=== PATIENT | female | born 1940 | race Caucasian/White ===

== ENCOUNTER 2017-04-27 07:35 | Inpatient (IN) | payer MEDICARE, MEDICAID ==
[2017-04-21 11:17] LABS: BASOPHILS % (AUTO) 0.2 % (0-1); EOSINOPHILS # (AUTO) 0.1 X10'3 (0-0.9); EOSINOPHILS % (AUTO) 1.7 % (0-6); LYMPHOCYTES # (AUTO) 1.4 X10'3 (1.1-4.8); LYMPHOCYTES % (AUTO) 29.1 % (21-51); MEAN CORPUSCULAR HEMOGLOBIN 33.9 PG (27.0-31.0); MEAN CORPUSCULAR HGB CONC 33.7 % (33.0-36.5); MEAN CORPUSCULAR VOLUME 100.7 FL (78-98); MEAN PLATELET VOLUME 6.3 FL (7.4-10.4); MONOCYTES # (AUTO) 0.5 X10'3 (0-0.9); MONOCYTES % (AUTO) 9.7 % (2-12); NEUTROPHILS # (AUTO) 2.8 X10'3 (1.8-7.7); NEUTROPHILS % (AUTO) 59.3 % (42-75); PRE OP HEMATOCRIT 37.3 % (35.0-45.0); PRE OP HEMOGLOBIN 12.6 g/dL (12.0-16.0); PRE OP PLATELET COUNT 272 X10'3 (140-440); RED BLOOD COUNT 3.71 X10'6 (4.20-5.60)
[2017-04-21 11:18] LABS: CLARITY,URINE CLEAR (Clear); COLOR,URINE YELLOW (Yellow); GLUCOSE, URINE NEGATIVE (Neg); KETONES,URINE NEGATIVE (Neg); LEUKOCYTE ESTERASE ,URINE NEGATIVE (Neg); NITRITES, URINE NEGATIVE (Neg); OCCULT BLOOD,URINE NEGATIVE (Neg); PH,URINE 6.5 (4.8-8.0); PROTEIN,URINE NEGATIVE (Neg); UROBILINOGEN,URINE 0.2 E.U/dL (0.2-1.0)
[2017-04-21 11:22] LABS: UA COLLECTION TYPE CLN CATCH MIDSTREAM
[2017-04-21 11:27] LABS: PRE OP INR 0.9 INR; PRE OP PROTIME 9.7 SECONDS (9.0-12.0)
[2017-04-21 11:32] LABS: ALBUMIN 3.6 G/DL (3.4-5.0); ALKALINE PHOSPHATASE 79 IU/L (46-116); BLOOD UREA NITROGEN 11 MG/DL (7-18); BUN/CREATININE RATIO 14.3 (6.6-38.0); CALCIUM 8.4 MG/DL (8.5-10.1); CHLORIDE 104 MMOL/L (99-107); CREATININE 0.77 MG/DL (0.40-0.90); PRE OP ALT 19 U/L (30-65); PRE OP ANION GAP 7 (8-16); PRE OP AST 15 U/L (10-37); PRE OP BILIRUB, TOTAL 0.2 MG/DL (0.0-1.0); PRE OP GLUCOSE 88 MG/DL (70-104); PRE OP POTASSIUM 4.3 MMOL/L (3.4-5.1); PRE OP SODIUM 138 MMOL/L (135-145); TOTAL PROTEIN 7.2 G/DL (6.4-8.2); eGFR 73 ML/MIN
[2017-04-27] VITALS (19 sets, daily range): BP systolic 99–138; BP diastolic 47–82
[~2017-04-27] VITALS: Ht 170.2 cm; Wt 60.0 kg
[~2017-04-27 07:35] MED LIST: ENZY1CAP5 PO; HORMONE CREAM TOP; IBUP-1984 PO; LEVO25TA7 PO; MAGN400O6 PO; MESSAGE TO NURSING IV ONE; VANCOMYCIN INJ 1000 MG in NORMAL SALINE 250ml IV.SOLN IV ONE; [UNRECOGNIZED DRUG - OTHER] PO; [UNRECOGNIZED DRUG - OTHER] PO; [UNRECOGNIZED DRUG - OTHER] PO; acetaminophen 325mg tablet PO ONE; celeCOXIB 100mg capsule PO ONE; famotidine 20mg tablet PO ONE; gabapentin 300mg capsule PO ONE; metoclopramide 5 mg/ml inj IV ONE; oxyCODONE SR 10mg (sust. release) tab PO ONE; ringers solution, lacted 1,000 ML IV SCH; tranexamic acid inj. 1,000 MG in normal saline 100ml IV soln 90 ML IV ONE
[2017-04-27] MEDS ORDERED: ondansetron/PF 4mg/2ml inj IV PRN ×3 (09:25→10:20)
[2017-04-27] MEDS ORDERED: diphenhydrAMINE 25mg capsule PO PRN ×2 (09:25)
[2017-04-27] MEDS ORDERED: acetaminophen 325mg tablet PO PRN (09:25)
[2017-04-27] MEDS ORDERED: oxyCODONE/APAP 10/325mg tablet PO PRN (09:25)
[2017-04-27] MEDS ORDERED: HYDROmorphone inj. 0.5 MG/0.5 ML DISP.SYRIN IV PRN ×2 (09:25)
[2017-04-27] MEDS ORDERED: magnesium hydroxide 30ml (MOM) UD suspension PO PRN (09:25)
[2017-04-27] MEDS ORDERED: bisacodyl 10mg suppository rectal RC PRN (09:25)
[2017-04-27] MEDS ORDERED: tetracaine 1% (10mg/ml) pres. free inj. ONE (09:28)
[2017-04-27] MEDS ORDERED: MIDAZolam 5mg/5ml vial ONE (09:30)
[2017-04-27] MEDS ORDERED: fentaNYL/PF 50MCG/1 ML 2ML syringe ONE (09:30)
[2017-04-27] MEDS ORDERED: clindamycin-Cleocin 900mg/D5W 50 ML IV ONE (09:30)
[2017-04-27] MEDS ORDERED: ROPIVAcaine 0.5% (5mg/ml) 30ml vial ONE (10:16)
[2017-04-27] MEDS ORDERED: cloNIDine hcl/PF 100mcg/ml inj ONE (10:16)
[2017-04-27] MEDS ORDERED: ketorolac trometh. 30mg/ml inj. ONE (10:16)
[2017-04-27] MEDS ORDERED: vancomycin 1,000mg inj ONE (10:16)
[2017-04-27] MEDS ORDERED: epiNEPHrine 1 mg/ml inj ONE (10:16)
[2017-04-27] MEDS ORDERED: ringers solution, lacted 1,000 ML IV SCH (10:18)
[2017-04-27] MEDS ORDERED: hydrALAZINE 20mg/ml inj. IV PRN (10:20)
[2017-04-27] MEDS ORDERED: labetalol 20mg/4ml (5mg/ml) syringe IV PRN (10:20)
[2017-04-27] MEDS ORDERED: morphine 2 MG/ML inj. syringe IV PRN ×2 (10:20)
[2017-04-27] MEDS ORDERED: diphenhydrAMINE 50 mg/ml inj IV PRN (10:20)
[2017-04-27] MEDS ORDERED: fentaNYL/PF 50MCG/1 ML 2ML syringe IV PRN ×2 (10:20)
[2017-04-27] MEDS: potassium cl 20mEq in 1/2 NS 1,000 ML IV SCH ×2 (15:02→17:21)
[2017-04-27] MEDS: gabapentin 300mg capsule PO SCH ×2 (16:05→20:20)
[2017-04-27] MEDS: clindamycin-Cleocin 900mg/D5W 50 ML IV SCH (16:05)
[2017-04-27] MEDS ORDERED: vancomycin/NS 1 GM ADD-VANTAGE 250 ML IV SCH (20:00)
[2017-04-27] MEDS: sennosides 8.6mg tablet PO SCH (20:20)
[2017-04-27] MEDS: ascorbic acid 500mg tablet PO SCH (20:21)
[2017-04-28] MEDS: clindamycin-Cleocin 900mg/D5W 50 ML IV SCH (00:11)
[2017-04-28 02:00] VITALS: BP 105/54
[2017-04-28] MEDS: potassium cl 20mEq in 1/2 NS 1,000 ML IV SCH ×3 (03:00→19:19)
[2017-04-28] MEDS: oxyCODONE/APAP 10/325mg tablet PO PRN ×3 (05:34→13:46)
[2017-04-28 06:00] VITALS: BP 101/46
[2017-04-28 06:37] LABS: BASOPHILS % (AUTO) 0.2 % (0-1); EOSINOPHILS # (AUTO) 0.1 X10'3 (0-0.9); EOSINOPHILS % (AUTO) 1.4 % (0-6); HEMATOCRIT 34.9 % (35.0-45.0); HEMOGLOBIN 11.2 g/dl (12.0-16.0); LYMPHOCYTES # (AUTO) 0.9 X10'3 (1.1-4.8); LYMPHOCYTES % (AUTO) 22.7 % (21-51); MEAN CORPUSCULAR HEMOGLOBIN 32.2 PG (27.0-31.0); MEAN CORPUSCULAR HGB CONC 32.1 % (33.0-36.5); MEAN CORPUSCULAR VOLUME 100.2 FL (78-98); MEAN PLATELET VOLUME 6.8 FL (7.4-10.4); MONOCYTES # (AUTO) 0.4 X10'3 (0-0.9); MONOCYTES % (AUTO) 10.2 % (2-12); NEUTROPHILS # (AUTO) 2.7 X10'3 (1.8-7.7); NEUTROPHILS % (AUTO) 65.5 % (42-75); PLATELET COUNT 157 X10'3 (140-440); RED BLOOD COUNT 3.48 X10'6 (4.20-5.60); RED CELL DISTRIBUTION WIDTH 13.5 % (11.5-14.5); WHITE BLOOD COUNT 4.2 X10'3 (4.5-11.0)
[2017-04-28 06:54] LABS: ANION GAP 10 (8-16); CHLORIDE 104 MMOL/L (99-107); SODIUM 134 MMOL/L (135-145)
[2017-04-28] MEDS ORDERED: aspirin 325mg tablet PO SCH (08:30)
[2017-04-28] MEDS: multivitamins, therapeutics tablet PO SCH (08:58)
[2017-04-28] MEDS: levoTHYROXINE 25mcg tablet PO SCH (08:58)
[2017-04-28] MEDS: ascorbic acid 500mg tablet PO SCH ×2 (08:58→19:13)
[2017-04-28] MEDS: gabapentin 300mg capsule PO SCH ×3 (08:58→19:12)
[2017-04-28] MEDS ORDERED: phenylephrine 10mg/ml inj IV ONE (09:25)
[2017-04-28] MEDS: enoxaparin 40mg/0.4ml syringe SUBCUT SCH (09:40)
[2017-04-28 10:00] VITALS: BP 113/63
[2017-04-28 14:00] VITALS: BP 152/57
[2017-04-28 18:48] VITALS: BP 145/71
[2017-04-28] MEDS: sennosides 8.6mg tablet PO SCH (19:12)
[2017-04-28] MEDS: HYDROcodone/acetaminophen 5mg/325mg tablet PO PRN (19:13)
[2017-04-28 22:00] VITALS: BP 135/61
[2017-04-29] MEDS: HYDROcodone/acetaminophen 5mg/325mg tablet PO PRN ×4 (01:05→23:16)
[2017-04-29] MEDS: potassium cl 20mEq in 1/2 NS 1,000 ML IV SCH (01:21)
[2017-04-29 06:00] VITALS: BP 146/71
[2017-04-29 06:43] LABS: BASOPHILS % (AUTO) 0.2 % (0-1); EOSINOPHILS % (AUTO) 0 % (0-6); HEMATOCRIT 29.4 % (35.0-45.0); HEMOGLOBIN 10.3 g/dl (12.0-16.0); LYMPHOCYTES # (AUTO) 0.9 X10'3 (1.1-4.8); LYMPHOCYTES % (AUTO) 18.5 % (21-51); MEAN CORPUSCULAR HGB CONC 34.8 % (33.0-36.5); MEAN CORPUSCULAR VOLUME 97.7 FL (78-98); MEAN PLATELET VOLUME 6.4 FL (7.4-10.4); MONOCYTES # (AUTO) 0.5 X10'3 (0-0.9); MONOCYTES % (AUTO) 10.3 % (2-12); NEUTROPHILS # (AUTO) 3.6 X10'3 (1.8-7.7); PLATELET COUNT 196 X10'3 (140-440); RED BLOOD COUNT 3.01 X10'6 (4.20-5.60); RED CELL DISTRIBUTION WIDTH 13.9 % (11.5-14.5)
[2017-04-29] MEDS: ascorbic acid 500mg tablet PO SCH ×2 (08:05→19:57)
[2017-04-29] MEDS: gabapentin 300mg capsule PO SCH ×3 (08:05→19:57)
[2017-04-29] MEDS: multivitamins, therapeutics tablet PO SCH (08:05)
[2017-04-29] MEDS: levoTHYROXINE 25mcg tablet PO SCH (08:05)
[2017-04-29] MEDS: enoxaparin 40mg/0.4ml syringe SUBCUT SCH (08:06)
[2017-04-29 10:00] VITALS: BP 146/65
[2017-04-29 18:00] VITALS: BP 137/73
[2017-04-29] MEDS: sennosides 8.6mg tablet PO SCH (19:58)
[2017-04-29 22:00] VITALS: BP 138/58
[2017-04-30] MEDS: HYDROcodone/acetaminophen 5mg/325mg tablet PO PRN ×3 (03:26→11:35)
[2017-04-30 06:00] VITALS: BP 133/64
[2017-04-30 06:39] LABS: BASOPHILS % (AUTO) 0.1 % (0-1); EOSINOPHILS # (AUTO) 0.1 X10'3 (0-0.9); EOSINOPHILS % (AUTO) 1.9 % (0-6); HEMATOCRIT 28.6 % (35.0-45.0); HEMOGLOBIN 9.9 g/dl (12.0-16.0); LYMPHOCYTES % (AUTO) 23.4 % (21-51); MEAN CORPUSCULAR HEMOGLOBIN 34.1 PG (27.0-31.0); MEAN CORPUSCULAR HGB CONC 34.7 % (33.0-36.5); MEAN CORPUSCULAR VOLUME 98.5 FL (78-98); MEAN PLATELET VOLUME 6.4 FL (7.4-10.4); MONOCYTES # (AUTO) 0.4 X10'3 (0-0.9); MONOCYTES % (AUTO) 9.2 % (2-12); NEUTROPHILS # (AUTO) 2.9 X10'3 (1.8-7.7); NEUTROPHILS % (AUTO) 65.4 % (42-75); PLATELET COUNT 202 X10'3 (140-440); RED CELL DISTRIBUTION WIDTH 13.5 % (11.5-14.5); WHITE BLOOD COUNT 4.4 X10'3 (4.5-11.0)
[2017-04-30] MEDS: ascorbic acid 500mg tablet PO SCH (07:51)
[2017-04-30] MEDS: multivitamins, therapeutics tablet PO SCH (07:51)
[2017-04-30] MEDS: levoTHYROXINE 25mcg tablet PO SCH (07:51)
[2017-04-30] MEDS: gabapentin 300mg capsule PO SCH (07:51)
[2017-04-30] MEDS: enoxaparin 40mg/0.4ml syringe SUBCUT SCH (07:55)
[2017-04-30 10:00] VITALS: BP 155/68
[2017-04-30] MEDS ORDERED: ENOX40DI11 SUBCUT (10:02)
== END 2017-04-30 12:20 | disposition home or self-care (01) | DRG 470 ==
LOC: PAS IN 07:35 → EDSTATUS 09:30 → ORTHO 4S 12:45
PROVIDERS: ADMIT Orthopaedic Surgery; ATTEND Orthopaedic Surgery
PROC: 0SRB06Z Replacement of Left Hip Joint with Oxidized Zirconium on Polyethylene Synthetic Substitute, Open Approach (ICD-10-PCS; principal; 2017-04-27 09:25)
DX: M16.12 Unilateral primary osteoarthritis, left hip (principal); Z96.641 Presence of right artificial hip joint; D62 Acute posthemorrhagic anemia; D15.1 Benign neoplasm of heart; E03.9 Hypothyroidism, unspecified; M70.62 Trochanteric bursitis, left hip; Z56.0 Unemployment, unspecified; Z88.0 Allergy status to penicillin; Z88.5 Allergy status to narcotic agent; Z91.041 Radiographic dye allergy status; Z79.899 Other long term (current) drug therapy; Z79.82 Long term (current) use of aspirin; Z87.891 Personal history of nicotine dependence; Z82.49 Family history of ischemic heart disease and other diseases of the circulatory system; Z80.42 Family history of malignant neoplasm of prostate
CPT/HCPCS: 36415; 71046; 72170; 80051; 80053; 81003; 84443; 85025; 85610; 85730; 86885; 86900; 86901; 87070; 97110; 97116; 97162; 97530; A4615; A6255; A6449; A7000; C1758; C1776; J0171; J0735; J1650; J1885; J2250; J2370; J2405; J2795; J3010; J3370; J3490; J7030; J7120

== ENCOUNTER 2019-01-26 11:57 | Emergency (ER) | payer MEDICARE ==
[~2019-01-26] VITALS: Ht 172.7 cm; Wt 53.8 kg
[~2019-01-26 11:57] MED LIST changes: +ENOX40DI11 SUBCUT; -MESSAGE TO NURSING IV ONE; -VANCOMYCIN INJ 1000 MG in NORMAL SALINE 250ml IV.SOLN IV ONE; -acetaminophen 325mg tablet PO ONE; -celeCOXIB 100mg capsule PO ONE; -famotidine 20mg tablet PO ONE; -gabapentin 300mg capsule PO ONE; -metoclopramide 5 mg/ml inj IV ONE; -oxyCODONE SR 10mg (sust. release) tab PO ONE; -ringers solution, lacted 1,000 ML IV SCH; -tranexamic acid inj. 1,000 MG in normal saline 100ml IV soln 90 ML IV ONE
[2019-01-26 12:11] VITALS: BP 197/88
[2019-01-26] MEDS ORDERED: ketorolac tromethamine 15mg/ml inj. IM ONE (13:40)
== END 2019-01-26 14:02 | disposition home or self-care (01) ==
LOC: ER 11:58
DX: G89.29 Other chronic pain (principal); E03.9 Hypothyroidism, unspecified; M54.5 Low back pain; Z90.89 Acquired absence of other organs; Z98.890 Other specified postprocedural states; Z88.1 Allergy status to other antibiotic agents; Z88.0 Allergy status to penicillin; Z79.899 Other long term (current) drug therapy
CPT/HCPCS: 96372; 99284; J1885